=== PATIENT | female | born 1990 | race Caucasian/White ===

== ENCOUNTER 2017-11-02 16:40 | Emergency (ER) | payer SELFPAY ==
[~2017-11-02] VITALS: Ht 160 cm; Wt 75.0 kg
[2017-11-02 17:15] VITALS: BP 107/73
== END 2017-11-02 19:35 | disposition left against medical advice (07) ==
LOC: ER 17:38
DX: T19.2XXA Foreign body in vulva and vagina, initial encounter (principal); X58.XXXA Exposure to other specified factors, initial encounter; Y93.89 Activity, other specified; Y92.002 Bathroom of unspecified non-institutional (private) residence as the place of occurrence of the external cause; Z53.21 Procedure and treatment not carried out due to patient leaving prior to being seen by health care provider